=== PATIENT | female | born 1990 | race Caucasian/White ===

== ENCOUNTER 2019-05-07 10:07 | Emergency (ER) | payer MEDICAID ==
[~2019-05-07] VITALS: Ht 152.4 cm; Wt 68.2 kg
[~2019-05-07 10:07] MED LIST: PRENATAL1 TA1 PO; PROVENTIL0.09 MG/A1 IH
[2019-05-07 10:46] LABS: COLLECTION METHOD CLEAN CATCH
[2019-05-07 10:51] LABS: BASO % 0.5 % (0.0-2.0); EOS # 0.5 (0.0-0.7); EOS % 8.1 % (0-4.0); GRAN # 3.5 (1.4-6.5); GRAN % 58.6 % (42.2-75.2); LYMPH # 1.6 (1.2-3.4); LYMPH % 26.2 % (20.0-51.0); MEAN CELL VOLUME 72 fl (80.0-100.0); MEAN CORPUSCULAR HEMOGLOBIN 24 pg (27.0-31.0); MEAN CORPUSCULAR HGB CONC 33 g/dl (33.0-37.0); MEAN PLATELET VOLUME 11.7 fl (7.4-10.4); MONO # 0.4 (0.1-0.6); MONO % 6.4 % (1.7-9.3); PLATELET COUNT 136 K/mm3 (130-400); RED BLOOD COUNT 5.06 M/mm3 (4.10-5.30)
[2019-05-07 10:53] LABS: PH 6 (5-8); SQUAMOUS EPITHELIAL 0-2 /hpf; URINE APPEARANCE Clear; URINE BACTERIA None Seen /hpf; URINE BILIRUBIN Negative (NEGATIVE); URINE BLOOD Negative (NEGATIVE); URINE COLOR Colorless; URINE GLUCOSE Negative (NEGATIVE); URINE KETONE Negative (NEGATIVE); URINE LEUKOCYTE ESTERASE Negative (NEGATIVE); URINE NITRATE Negative (NEGATIVE); URINE PROTEIN(semi-quant) Negative (NEGATIVE); URINE RBC 0-2 /hpf; URINE UROBILINOGEN Negative (NEGATIVE)
[2019-05-07 11:02] LABS: ALANINE AMINOTRANSFERASE 35 U/L (9-52); ALBUMIN 4.7 gm/dL (3.5-5.0); ALKALINE PHOSPHATASE 70 U/L (50-136); ANION GAP 9 mmol/L (7-16); AST,SGOT 35 U/L (15-37); BILIRUBIN,TOTAL 0.5 mg/dL (0.0-1.0); BLOOD UREA NITROGEN 8 mg/dL (7-17); CALCIUM 9.6 mg/dL (8.4-10.2); CARBON DIOXIDE 29 mmol/L (22-30); CHLORIDE 103 mmol/L (98-107); CREATININE, serum 0.86 (0.52-1.25); GLUCOSE 96 mg/dL (74-106); SODIUM 141 mmol/L (137-145)
[2019-05-07 11:15] LABS: TROPONIN-I < 0.012 ng/mL (0.000-0.035)
[2019-05-07 11:18] LABS: HEMATOCRIT 36.4 % (37.0-47.0)
[2019-05-07] MEDS ORDERED: PRILOSEC 20MG20 MG PO (11:53)
[2019-05-07 12:05] VITALS: BP 131/79; PULSE 65; TEMP 98.2
== END 2019-05-07 12:16 | disposition home or self-care (01) ==
LOC: COL.ER 10:07
PROVIDERS: Family Medicine; Physician Assistant
DX: R07.89 Other chest pain (principal)
CPT/HCPCS: J2405

== ENCOUNTER → 2019-05-08 | Outpatient (CLI) | payer MEDICAID ==
[~2019-05-08] MED LIST changes: +NORCO 325 MG-51 TAB PO; +PRILOSEC 20MG20 MG PO; +ZOFRAN 4MG T4 MG/TAB PO
== END ==
LOC: COL.RAD 09:43
DX: I35.1 Nonrheumatic aortic (valve) insufficiency (principal)

== ENCOUNTER 2019-05-10 21:18 | Emergency (ER) | payer MEDICAID ==
[~2019-05-10] VITALS: Ht 149.9 cm; Wt 67.3 kg
[~2019-05-10 21:18] MED LIST changes: -NORCO 325 MG-51 TAB PO; -ZOFRAN 4MG T4 MG/TAB PO
[2019-05-10 21:21] VITALS: BP 141/79; TEMP 98.7
[2019-05-10 22:24] LABS: BASO % 0.3 % (0.0-2.0); EOS # 0.6 (0.0-0.7); EOS % 6.3 % (0-4.0); GRAN # 6.5 (1.4-6.5); GRAN % 71.7 % (42.2-75.2); HEMOGLOBIN 11.7 g/dl (12.5-16.0); LYMPH # 1.5 (1.2-3.4); LYMPH % 16.5 % (20.0-51.0); MEAN CELL VOLUME 72 fl (80.0-100.0); MEAN CORPUSCULAR HEMOGLOBIN 24 pg (27.0-31.0); MEAN CORPUSCULAR HGB CONC 33 g/dl (33.0-37.0); MEAN PLATELET VOLUME 11.8 fl (7.4-10.4); MONO # 0.4 (0.1-0.6); MONO % 4.9 % (1.7-9.3); PLATELET COUNT 161 K/mm3 (130-400); RED BLOOD COUNT 4.89 M/mm3 (4.10-5.30); REDCELL DISTRIBUTION WIDTH-CV 16.6 % (11.5-14.5)
[2019-05-10 22:25] LABS: HEMATOCRIT 35.2 % (37.0-47.0)
[2019-05-10 22:36] LABS: ALANINE AMINOTRANSFERASE 46 U/L (9-52); ALBUMIN 4.6 gm/dL (3.5-5.0); ALKALINE PHOSPHATASE 70 U/L (50-136); ANION GAP 8 mmol/L (7-16); AST,SGOT 58 U/L (15-37); BILIRUBIN,TOTAL 0.5 mg/dL (0.0-1.0); BLOOD UREA NITROGEN 12 mg/dL (7-17); C-REACTIVE PROTEIN 0.6 mg/dL (0.0-0.9); CALCIUM 9.6 mg/dL (8.4-10.2); CARBON DIOXIDE 28 mmol/L (22-30); CHLORIDE 101 mmol/L (98-107); GLUCOSE 117 mg/dL (74-106); LIPASE 88 U/L (23-300); POTASSIUM 3.8 mmol/L (3.4-5.0); SODIUM 137 mmol/L (137-145); TOTAL PROTEIN 7.8 gm/dL (6.4-8.2)
[2019-05-10 22:46] LABS: TROPONIN-I < 0.012 ng/mL (0.000-0.035)
[2019-05-10] MEDS ORDERED: ZOFRAN 4MG T4 MG/TAB PO (23:01)
[2019-05-10 23:20] VITALS: PULSE 60
== END 2019-05-10 23:20 | disposition home or self-care (01) ==
LOC: COL.ER 21:18
PROVIDERS: Emergency Medicine
DX: R07.89 Other chest pain (principal); J45.909 Unspecified asthma, uncomplicated

== ENCOUNTER → 2019-05-12 | Outpatient (CLI) | payer MEDICAID ==
[~2019-05-12] MED LIST changes: +ZOFRAN 4MG T4 MG/TAB PO
== END ==
LOC: COL.RAD 10:30
DX: K80.20 Calculus of gallbladder without cholecystitis without obstruction (principal)

== ENCOUNTER 2019-05-16 07:55 | Day surgery (SDC) | payer MEDICAID ==
[2019-05-16] VITALS (10 sets, daily range): BP systolic 135–158; BP diastolic 70–85; PULSE 59–84; TEMP 98.1–99
[~2019-05-16] VITALS: Ht 152.4 cm; Wt 65.9 kg
[2019-05-16 08:51] LABS: BILIRUBIN,TOTAL 0.7 mg/dL (0.0-1.0); C-REACTIVE PROTEIN 1.1 mg/dL (0.0-0.9); CALCIUM 9.3 mg/dL (8.4-10.2); CREATININE, serum 0.87 (0.52-1.25); POTASSIUM 4.4 mmol/L (3.4-5.0); TOTAL PROTEIN 8.5 gm/dL (6.4-8.2)
[2019-05-16 08:59] LABS: BASO % 0.2 % (0.0-2.0); GRAN # 5.1 (1.4-6.5); HEMOGLOBIN 11.9 g/dl (12.5-16.0); LYMPH # 0.5 (1.2-3.4); LYMPH % 8.8 % (20.0-51.0); MEAN CELL VOLUME 74 fl (80.0-100.0); MEAN CORPUSCULAR HEMOGLOBIN 24 pg (27.0-31.0); MEAN CORPUSCULAR HGB CONC 33 g/dl (33.0-37.0); MEAN PLATELET VOLUME 11.9 fl (7.4-10.4); MONO # 0.1 (0.1-0.6); MONO % 1.6 % (1.7-9.3); PLATELET COUNT 173 K/mm3 (130-400); REDCELL DISTRIBUTION WIDTH-CV 17.3 % (11.5-14.5)
[2019-05-16 09:07] LABS: HEMATOCRIT 36.1 % (37.0-47.0)
[2019-05-16 09:50] LABS: COLLECTION METHOD CLEAN CATCH
[2019-05-16 10:04] LABS: MUCOUS Present /lpf; PH 5 (5-8); SQUAMOUS EPITHELIAL 0-2 /hpf; URINE APPEARANCE Clear; URINE BACTERIA None Seen /hpf; URINE BILIRUBIN Negative (NEGATIVE); URINE BLOOD Negative (NEGATIVE); URINE COLOR Straw; URINE GLUCOSE Negative (NEGATIVE); URINE KETONE 2+ (NEGATIVE); URINE LEUKOCYTE ESTERASE Negative (NEGATIVE); URINE NITRATE Negative (NEGATIVE); URINE PROTEIN(semi-quant) Negative (NEGATIVE); URINE UROBILINOGEN Negative (NEGATIVE)
--- NOTE | 2019-05-16 13:30 | NUR ---
Patient returned from surgery. Assessment unchanged except for the addition of 3 lap sites. Dressed wit bandaid. Dressings are clean, dry and intact.
--- NOTE | 2019-05-16 20:00 | NUR ---
Report received. Assumed care for benefits advisor. Assessment complete. VS stable. C/O nausea-phenergan hanging per dr order. Denies pain. Abdomen is distended-bowel sounds hypoactive. LAP sites x3-edges well approximated-gutierres set open to air. No emesis. Will monitor Phenergan effectiveness. Plan of care discussed for pain control. anti-emetics and ambulating. Verbalizes undrstanding. Call light in reach/bed in low position. WIll monitor.
--- NOTE | 2019-05-16 22:00 | NUR ---
Report given to JORGE Negrete
[2019-05-17 04:45] VITALS: BP 147/71; PULSE 54; TEMP 98.7
[2019-05-17 07:39] VITALS: BP 150/70; PULSE 63; TEMP 98.6
[2019-05-17] MEDS ORDERED: NORCO 325 MG-51 TAB PO (09:03)
--- NOTE | 2019-05-17 10:07 | NUR ---
Patient alert and oriented, answers questions appropriately. See assessment. Abdomen soft, non tender, non distended. Bowel sounds active x4 quads. +Flatus. Abdomen lap sites with edges well approximated, no redness or drainage noted. +Bowel movement. No c/o abdominal pain or pressure.
--- NOTE | 2019-05-17 11:50 | NUR ---
First visit from the retail commission sales associate. No needs right now.
--- NOTE | 2019-05-17 11:52 | NUR ---
SW met with patient and family discuss discharge planning. Patient lives independently at home. Patient's PCP is at [facility]. Patient is unsure of the doctors name. Patient obtains medications from [facility]. Patient denies difficulty obtaining medications. Patient reports independence with all ADLs and has been walking in the halls. Patient does not have a DPOA-HC and is not interested in completing any advanced directives at this time. Patient will discharge home later today. SW does not anticipate any discharge needs.
[2019-05-17 12:08] VITALS: BP 136/77; PULSE 72; TEMP 98.9
--- NOTE | 2019-05-17 12:21 | NUR ---
Discharge instructions reviewed with patient and family, verbalized understanding. Discharged via wheelchair to auto/home with family at 1220.
== END 2019-05-17 12:20 | disposition home or self-care (01) ==
LOC: COL.ER 07:55 → SDCO 09:59 → EDSTATUS 10:32 → SURG 13:36 → SDCO 05-17 12:20
PROVIDERS: Physician Assistant
DX: K80.10 Calculus of gallbladder with chronic cholecystitis without obstruction (principal); K29.70 Gastritis, unspecified, without bleeding; K92.0 Hematemesis; Z79.899 Other long term (current) drug therapy; J45.909 Unspecified asthma, uncomplicated
CPT/HCPCS: OP; J0780; J1100; J1885; J2405; J2550; J2704; J2710; J3010; J7030; J7120

== ENCOUNTER 2019-05-24 17:52 | Inpatient (IN) | payer MEDICAID ==
[~2019-05-24] VITALS: Ht 149.9 cm; Wt 60.5 kg
[~2019-05-24 17:52] MED LIST changes: +NORCO 325 MG-51 TAB PO
[2019-05-24 18:31] LABS: BASO % 0.4 % (0.0-2.0); EOS # 0.1 (0.0-0.7); GRAN % 56.2 % (42.2-75.2); HEMATOCRIT 40.6 % (37.0-47.0); LYMPH # 1.6 (1.2-3.4); LYMPH % 29.9 % (20.0-51.0); MEAN CELL VOLUME 71 fl (80.0-100.0); MEAN CORPUSCULAR HEMOGLOBIN 25 pg (27.0-31.0); MEAN CORPUSCULAR HGB CONC 35 g/dl (33.0-37.0); MEAN PLATELET VOLUME 12.2 fl (7.4-10.4); MONO # 0.6 (0.1-0.6); MONO % 11.3 % (1.7-9.3); PLATELET COUNT 281 K/mm3 (130-400); RED BLOOD COUNT 5.69 M/mm3 (4.10-5.30); REDCELL DISTRIBUTION WIDTH-CV 16.9 % (11.5-14.5)
[2019-05-24 18:46] LABS: ALANINE AMINOTRANSFERASE 94 U/L (9-52); ALBUMIN 5.1 gm/dL (3.5-5.0); ALKALINE PHOSPHATASE 151 U/L (50-136); ANION GAP 13 mmol/L (7-16); AST,SGOT 56 U/L (15-37); BILIRUBIN,TOTAL 1.4 mg/dL (0.0-1.0); BLOOD UREA NITROGEN 7 mg/dL (7-17); CALCIUM 9.7 mg/dL (8.4-10.2); CARBON DIOXIDE 30 mmol/L (22-30); CHLORIDE 92 mmol/L (98-107); CREATININE, serum 0.73 (0.52-1.25); GLUCOSE 102 mg/dL (74-106); LIPASE 89 U/L (23-300); SODIUM 136 mmol/L (137-145); TOTAL PROTEIN 8.6 gm/dL (6.4-8.2)
[2019-05-24 18:49] LABS: C-REACTIVE PROTEIN < 0.5 mg/dL (0.0-0.9); POTASSIUM 2.6 mmol/L (3.4-5.0)
--- NOTE | 2019-05-24 22:45 | NUR ---
PT RECEIVED FROM ED VIA CART. REPORT BY PHONE PRIOR.INT TO LF. TELEMETRY ATTACHED. MOTHER PRESENT BU TLEAVINT TO CARE FOR PTS INFANT. SLEEPY. DENIES PAIN, NAUSEA,OR VOMITING. VSS
[2019-05-24 23:00] VITALS: BP 119/77; PULSE 88; TEMP 98.6
--- NOTE | 2019-05-24 23:29 | NUR ---
O2 SAT 96%
[2019-05-25] VITALS (13 sets, daily range): BP systolic 122–143; BP diastolic 67–89; PULSE 61–81; TEMP 97.7–98.6
--- NOTE | 2019-05-25 06:07 | NUR ---
CALLS NURSE FOR ICE WATER/ STATES NAUSEA IS NO BETTER/ SLEEPS UNDISTURBED. NO FURTHER REQUEST FOR PHENERGAN AT THIS TIME
[2019-05-25 08:14] LABS: HEMOGLOBIN 12.1 g/dl (12.5-16.0); MEAN CELL VOLUME 73 fl (80.0-100.0); MEAN CORPUSCULAR HEMOGLOBIN 25 pg (27.0-31.0); MEAN CORPUSCULAR HGB CONC 34 g/dl (33.0-37.0); PLATELET COUNT 198 K/mm3 (130-400); RED BLOOD COUNT 4.93 M/mm3 (4.10-5.30); REDCELL DISTRIBUTION WIDTH-CV 16.7 % (11.5-14.5)
[2019-05-25 08:22] LABS: BILIRUBIN,TOTAL 2.2 mg/dL (0.0-1.0); CALCIUM 8.6 mg/dL (8.4-10.2); CREATININE, serum 0.65 (0.52-1.25); POTASSIUM 3.4 mmol/L (3.4-5.0); TOTAL PROTEIN 6.8 gm/dL (6.4-8.2)
[2019-05-25 08:23] LABS: HEMATOCRIT 35.8 % (37.0-47.0)
--- NOTE | 2019-05-25 08:45 | NUR ---
Dr. Thompson at bedside, discusses plan of care which includes orders for a CT of the abdomen and a GI consult.
--- NOTE | 2019-05-25 09:40 | NUR ---
[id number] Patient off of unit for CT of abdomen.
--- NOTE | 2019-05-25 10:45 | NUR ---
Dr. Beltre at bedside, discusses plan for ERCP at 1400 today.
--- NOTE | 2019-05-25 13:45 | NUR ---
Patient to endoscopy for ERCP via wheelchair.
--- NOTE | 2019-05-25 14:50 | NUR ---
Patient to room 222 via cart from endoscopy. Patient ambulatory to bed from cart with 2 assist. Patient alert and oriented, plan of care reviewed, recovery vital signs started.
--- NOTE | 2019-05-26 04:00 | NUR ---
Awakened for IV start. Pt states "I'm not nauseated now, and I've been sipping water. Can we leave it out for now?"
[2019-05-26 08:10] VITALS: BP 112/74; PULSE 68; TEMP 97.9
--- NOTE | 2019-05-26 09:17 | NUR ---
Initial visit; Patient thanked Wind Operations Manager for offering comfort, encouragement and prayer. Libby stated she is feeling better and glad to be here and have such good care.
== END 2019-05-26 11:20 | disposition home or self-care (01) | DRG 446 ==
LOC: COL.ER 17:52 → OB 20:04
PROVIDERS: Family Medicine; Internal Medicine Gastroenterology; ADMIT Surgery
PROC: BF10YZZ Fluoroscopy of Bile Ducts using Other Contrast (ICD-10-PCS; 2019-05-25)
PROC: 0FC98ZZ Extirpation of Matter from Common Bile Duct, Via Natural or Artificial Opening Endoscopic (ICD-10-PCS; principal; 2019-05-25 14:00)
DX: K80.50 Calculus of bile duct without cholangitis or cholecystitis without obstruction (principal)
CPT/HCPCS: OP; C1769; J2405; J2550; J2704; J2765; J3010; J3480; J7030; Q9967